=== PATIENT | female | born 1990 | race Caucasian/White ===

== ENCOUNTER 2017-03-30 11:56 | Emergency (ER) | payer SELFPAY ==
[~2017-03-30] VITALS: Ht 162.6 cm; Wt 86.2 kg
--- NOTE | 2017-03-30 12:05 | NUR ---
ANXIETY; TRIED SNORTING CRYSTAL METH LAST NIGHT; NO HAVING PALPITATIONS
[2017-03-30] MEDS ORDERED: LORAZEPAM 1 MG TABLET ONE (12:19)
[2017-03-30] MEDS ORDERED: LORAZEPAM 1 MG TABLET PO ONE (12:30)
[2017-03-30 12:38] VITALS: BP 139/89
== END 2017-03-30 12:43 | disposition home or self-care (01) ==
LOC: ER 11:57
DX: F41.9 Anxiety disorder, unspecified (principal); F15.90 Other stimulant use, unspecified, uncomplicated
CPT/HCPCS: 99283; A4606; Z7610